=== PATIENT | male | born 1945 | race Caucasian/White ===

== ENCOUNTER → 2019-07-15 | Outpatient (CLI) | payer MEDICARE, BC | LOC: COL.RAD 09:16 | DX: K80.20 Calculus of gallbladder without cholecystitis without obstruction (principal) | CPT/HCPCS: A9537 ==

== ENCOUNTER 2021-07-18 07:29 | Day surgery (SDC) | payer MEDICARE, BC ==
[~2021-07-18] VITALS: Ht 180.3 cm; Wt 94.0 kg
--- NOTE | 2021-07-18 07:35 | NUR ---
Patient ambulated back to bay #[facility] without difficulty and without assistive devices. Patient medications reviewed. Vitals obtained. Consent signed. Lung sounds are clear. Heart sounds are in sinus rythm. Bowel sounds are audible. Patient is present. Warm blanket given and non-slip socks are on. IV started on right hand on second attempt with #20. LR is infusing without difficulty. Will continue to monitor.
[2021-07-18 07:50] VITALS: BP 131/71; PULSE 66
[2021-07-18] MEDS ORDERED: XALATAN EYE DROPS OU (07:55)
[2021-07-18] MEDS ORDERED: DITROPAN 5MG TAB5 MG PO (07:56)
[2021-07-18] MEDS ORDERED: VITAMIN D31000 I1 PO (07:56)
[2021-07-18 11:24] VITALS: BP 132/75; PULSE 89
[2021-07-18 12:16] VITALS: BP 130/70; PULSE 74; TEMP 97.4
--- NOTE | 2021-07-18 12:16 | NUR ---
Patient arrives from PACU via cart. Patient is drowsey, is present in room. Vitals obtained and are stable. Patient was able to ambulate to bathroom with +1 assist by MAVIS Piña. Patient was given a fresh warm blanket. Will continue to monitor.
[2021-07-18] MEDS ORDERED: NORCO 325 MG-51 TAB PO (12:28)
[2021-07-18 12:31] VITALS: BP 121/65; PULSE 79
--- NOTE | 2021-07-18 12:31 | NUR ---
Patient is alert and oriented x3. Vitals obtained. Patient asked for ice water and tolerated it well. Denies N/V. Will continue to monitor.
--- NOTE | 2021-07-18 12:46 | NUR ---
Patient is alert and states "feeling well". Patient accepted offer for a snack, and requested buttered toast. Patient seems to be tolerating it well. Vitals obtained. Will continue to monitor.
--- NOTE | 2021-07-18 13:25 | NUR ---
Patient voiced a desire to be discharge. Criteria is met. Discharge instructions have been reviewed. Patient verbalized undstanding. Vitals obtained. IV discontinued at this time. Site is intact, without reddness or swelling. Catheter intact. Patient denied needing assistance changing. is present. Will continue to monitor.
[2021-07-18 13:31] VITALS: BP 157/83; PULSE 70
--- NOTE | 2021-07-18 13:45 | NUR ---
Patient was escorted to [facility] via wheelchair by MAVIS Payton and accompanied by his who is driving.Patient was transferred into the care of his at this time. He has is belongings, discharge information and no futher questions.
== END 2021-07-18 13:55 | disposition home or self-care (01) ==
LOC: SDCO 07:29
DX: C20 Malignant neoplasm of rectum (principal); M19.90 Unspecified osteoarthritis, unspecified site; Z20.822 Contact with and (suspected) exposure to COVID-19; Z79.899 Other long term (current) drug therapy; Z87.891 Personal history of nicotine dependence; Z82.3 Family history of stroke; Z83.3 Family history of diabetes mellitus; Z80.0 Family history of malignant neoplasm of digestive organs; Z80.42 Family history of malignant neoplasm of prostate
CPT/HCPCS: C1788; J0690; J1100; J1644; J2250; J2405; J2704; J7120

== ENCOUNTER → 2022-06-25 | Outpatient (CLI) | payer MEDICARE, BC ==
[~2022-06-25] MED LIST: DITROPAN 5MG TAB5 MG PO; NORCO 325 MG-51 TAB PO; VITAMIN D31000 I1 PO; XALATAN EYE DROPS OU
== END ==
LOC: COL.RAD 09:06
DX: Z08 Encounter for follow-up examination after completed treatment for malignant neoplasm (principal); Z85.048 Personal history of other malignant neoplasm of rectum, rectosigmoid junction, and anus; K76.0 Fatty (change of) liver, not elsewhere classified; K80.20 Calculus of gallbladder without cholecystitis without obstruction
CPT/HCPCS: Q9967

== ENCOUNTER → 2023-01-04 | Outpatient (CLI) | payer MEDICARE, BC | LOC: COL.RAD 09:13 | DX: C20 Malignant neoplasm of rectum (principal) | CPT/HCPCS: Q9967 ==

== ENCOUNTER → 2024-06-23 | Outpatient (CLI) | payer MEDICARE, BC ==
[~2024-06-23] MED LIST changes: +Iohexol 300 - 100 ML VIAL IV ONE; +NS 100 ML IV SCH
== END ==
LOC: COL.RAD 08:24
DX: C20 Malignant neoplasm of rectum (principal); M89.9 Disorder of bone, unspecified; K80.20 Calculus of gallbladder without cholecystitis without obstruction; N20.0 Calculus of kidney; Z98.890 Other specified postprocedural states
CPT/HCPCS: Q9967